=== PATIENT | female | born 1955 | race Caucasian/White ===

== ENCOUNTER 2017-12-15 19:20 | Emergency (ER) | payer MEDICAID ==
[~2017-12-15] VITALS: Ht 157.5 cm; Wt 103.0 kg
[~2017-12-15 19:20] MED LIST: ACTOPLUS MET 11 EAC1; ALAVERT10 M1 PO; ATORVASTATIN CA40 MG; CIPRO250 M1 PO; HYDROCHLOROTHIA25 M1; MONTELUKAST SOD10 MG PO; NYSTATIN 1100000 U/M; PRINIVIL20 MG; PROAIR HFA8.5 GM INH; PROTONIX40 M1 PO; PYRIDIUM200 MG PO; SINGULAIR 10 MG10 M1 PO; SYMBICORT80 MCG/4.1; TRAMADOL 50 MG50 MG PO; VENLAFAXINE HCL75 M2 PO; ZANTAC 150MG T150 M1 PO
[2017-12-15] MEDS ORDERED: MOBIC7.5 MG PO (19:42)
[2017-12-15] MEDS ORDERED: SYMBICORT160 MCG/4. INH (19:42)
[2017-12-15] MEDS ORDERED: CLEOCIN HCL150 MG PO (19:55)
[2017-12-15 20:18] VITALS: BP 135/56
== END 2017-12-15 20:19 | disposition home or self-care (01) ==
LOC: M.ERS 19:20
DX: L03.115 Cellulitis of right lower limb (principal); J45.909 Unspecified asthma, uncomplicated; F17.210 Nicotine dependence, cigarettes, uncomplicated; Z88.5 Allergy status to narcotic agent

== ENCOUNTER 2017-12-18 16:04 | Inpatient (IN) | payer MEDICAID ==
[~2017-12-18] VITALS: Ht 157.5 cm; Wt 105.7 kg
[~2017-12-18 16:04] MED LIST changes: +CLEOCIN HCL150 MG PO; +MOBIC7.5 MG PO; +SYMBICORT160 MCG/4. INH
[2017-12-18 16:11] VITALS: BP 156/62
[2017-12-18 16:46] LABS: ABSOLUTE BASOPHILS 0.1 thou/uL (0.0-0.2); ABSOLUTE EOSINOPHILS 0.2 thou/uL (0.0-0.7); ABSOLUTE LYMPHOCYTES 1.6 thou/uL (0.8-5.3); ABSOLUTE MONOCYTES 0.5 thou/uL (0.0-1.2); ABSOLUTE NEUTROPHILS 3.5 thou/uL (1.6-8.1); BASOPHILS 1.2 %; HEMATOCRIT 37.6 % (37.0-47.0); HEMOGLOBIN 12.4 gm/dL (12.0-15.0); LYMPHOCYTES 27.5 %; MCV 84.9 fL (80.0-100.0); MONOCYTES 8.8 %; MPV 8.6 fl. (7.2-11.1); NUCLEATED RBCS 0 /100WBC; PLATELET COUNT* 253 thou/uL (150-400); POLYS 59.5 %; RBC 4.44 mil/uL (4.20-5.00); RDW-CV 14.4 % (10.5-14.5)
[2017-12-18 16:53] LABS: CALCIUM 8.3 mg/dL (8.5-10.1); CREATININE 0.6 mg/dL (0.6-1.3); POTASSIUM 4.3 mmol/L (3.5-5.1)
[2017-12-18 16:58] LABS: ALBUMIN 3.2 g/dL (3.4-5.0); TOTAL BILIRUBIN 0.3 mg/dL (<0.1-1.0); TOTAL PROTEIN 7.1 g/dL (6.4-8.2)
[2017-12-18 19:25] VITALS: BP 145/66
[2017-12-18 19:30] VITALS: BP 155/55
[2017-12-19 04:26] LABS: ABSOLUTE EOSINOPHILS 0.2 thou/uL (0.0-0.7); ABSOLUTE LYMPHOCYTES 1.9 thou/uL (0.8-5.3); ABSOLUTE MONOCYTES 0.6 thou/uL (0.0-1.2); ABSOLUTE NEUTROPHILS 3.2 thou/uL (1.6-8.1); BASOPHILS 0.7 %; EOSINOPHILS 3.9 %; HEMATOCRIT 35.8 % (37.0-47.0); HEMOGLOBIN 11.5 gm/dL (12.0-15.0); LYMPHOCYTES 31.6 %; MCH 27.7 pg (26.0-34.0); MCHC 32.2 g/dL (28.0-37.0); MONOCYTES 9.7 %; MPV 8.6 fl. (7.2-11.1); NUCLEATED RBCS 0 /100WBC; PLATELET COUNT* 227 thou/uL (150-400); POLYS 54.1 %; RBC 4.16 mil/uL (4.20-5.00); RDW-CV 14.3 % (10.5-14.5)
[2017-12-19 04:39] LABS: CALCIUM 8.9 mg/dL (8.5-10.1); CREATININE 0.6 mg/dL (0.6-1.3); POTASSIUM 4.2 mmol/L (3.5-5.1)
[2017-12-19 08:30] VITALS: BP 145/81
[2017-12-19 16:00] VITALS: BP 132/54
[2017-12-19 20:00] VITALS: BP 153/62
[2017-12-20 05:19] VITALS: BP 143/55
[2017-12-20 08:02] VITALS: BP 158/68
[2017-12-20 16:33] VITALS: BP 125/76
[2017-12-20 19:40] VITALS: BP 142/60
[2017-12-21 08:18] VITALS: BP 133/62
[2017-12-21 10:48] VITALS: BP 133/62
[2017-12-21] MEDS ORDERED: MINOCIN50 MG PO (10:55)
[2017-12-21] MEDS ORDERED: NYSTATIN100000 UNI PO (11:00)
[2017-12-21 12:01] VITALS: BP 133/62
== END 2017-12-21 12:02 | disposition home or self-care (01) | DRG 603 ==
LOC: M.ERS 16:04 → M.TBA-ER 17:23 → M.ORTHSURG 17:23
PROVIDERS: Nurse Practitioner Family; ADMIT Internal Medicine
DX: L03.115 Cellulitis of right lower limb (principal); F17.210 Nicotine dependence, cigarettes, uncomplicated; J45.909 Unspecified asthma, uncomplicated; E66.01 Morbid (severe) obesity due to excess calories; Z79.899 Other long term (current) drug therapy; Z88.6 Allergy status to analgesic agent; Z68.41 Body mass index [BMI] 40.0-44.9, adult

== ENCOUNTER → 2018-10-10 | Outpatient (CLI) | payer MEDICAID ==
[~2018-10-10] MED LIST changes: +MINOCIN50 MG PO; +NYSTATIN100000 UNI PO
== END ==
LOC: M.MRI 11:30
DX: S83.241A Other tear of medial meniscus, current injury, right knee, initial encounter (principal); M17.11 Unilateral primary osteoarthritis, right knee; M25.461 Effusion, right knee; M71.21 Synovial cyst of popliteal space [Baker], right knee; J45.909 Unspecified asthma, uncomplicated; M19.90 Unspecified osteoarthritis, unspecified site; F32.9 Major depressive disorder, single episode, unspecified; Z79.899 Other long term (current) drug therapy; X58.XXXA Exposure to other specified factors, initial encounter; Y93.89 Activity, other specified; Y92.89 Other specified places as the place of occurrence of the external cause; Y99.8 Other external cause status

== ENCOUNTER → 2019-01-16 | Outpatient (CLI) | payer MEDICAID ==
[2019-01-16 13:47] LABS: CALCIUM 9.5 mg/dL (8.5-10.1); CREATININE 0.7 mg/dL (0.6-1.3); MAGNESIUM 2.2 mg/dL (1.8-2.4); POTASSIUM 4.6 mmol/L (3.5-5.1)
== END ==
LOC: M.LAB 13:01
DX: E61.2 Magnesium deficiency (principal); E78.5 Hyperlipidemia, unspecified

== ENCOUNTER 2019-07-19 18:51 | Emergency (ER) | payer MEDICAID ==
[~2019-07-19] VITALS: Ht 157.5 cm; Wt 95.3 kg
[2019-07-19] MEDS ORDERED: REQUIP 0.25 M0.25 MG PO (19:40)
[2019-07-19] MEDS ORDERED: FLONASE 0.05%50 MCG NARES (19:41)
[2019-07-19] MEDS ORDERED: MEDROLDOSEPACK PO (21:57)
[2019-07-19] MEDS ORDERED: NORCO 5-325 TA1 EAC1 PO (21:57)
[2019-07-19 22:27] VITALS: BP 173/73
== END 2019-07-19 22:27 | disposition home or self-care (01) ==
LOC: M.ERS 18:51
DX: M54.32 Sciatica, left side (principal); J45.909 Unspecified asthma, uncomplicated; F17.210 Nicotine dependence, cigarettes, uncomplicated; Z88.5 Allergy status to narcotic agent; Z96.641 Presence of right artificial hip joint

== ENCOUNTER 2019-12-03 18:20 | Emergency (ER) | payer MEDICAID ==
[~2019-12-03] VITALS: Ht 157.5 cm; Wt 102.5 kg
[~2019-12-03 18:20] MED LIST changes: +FLONASE 0.05%50 MCG NARES; +MEDROLDOSEPACK PO; +NORCO 5-325 TA1 EAC1 PO; +REQUIP 0.25 M0.25 MG PO
[2019-12-03] MEDS ORDERED: DOXYCYCLINE 10100 MG PO (20:08)
[2019-12-03 20:18] VITALS: BP 151/76
== END 2019-12-03 20:19 | disposition home or self-care (01) ==
LOC: M.ERS 18:20
DX: L02.214 Cutaneous abscess of groin (principal); J45.909 Unspecified asthma, uncomplicated; F17.210 Nicotine dependence, cigarettes, uncomplicated; Z96.651 Presence of right artificial knee joint; Z88.5 Allergy status to narcotic agent